=== PATIENT | female | born 1985 | race Asian ===

== ENCOUNTER 2021-11-07 15:30 | Emergency (ER) | payer OTHER ==
[2021-11-07] MEDS ORDERED: diphenhydrAMINE INJ 50 MG/ML VIAL IM STA (15:58)
[2021-11-07] MEDS ORDERED: DROPERIDOL 5 MG/2 ML VIAL IM STA (15:58)
[2021-11-07] MEDS ORDERED: SUMAtriptan 6 MG/0.5 ML VIAL SUBQ STA (15:58)
--- NOTE | 2021-11-07 16:15 | ED Physician Documentation ---
PD HPI HEADACHE - Stated complaint Stated Complaint: HEADACHE - Chief complaint Chief Complaint: Neuro - History obtained from History obtained from: Patient, Family - History of Present Illness Timing - onset: How many days ago (5) Timing - duration: Days (5) Timing - details: Gradual onset Pain level max: 7 Pain level now: 4 Location: Right Quality: Throbbing, Aching Associated symptoms: No: Fever, Stiff neck, Nausea, Vomiting, Weakness, Numbness, Syncope, Seizure Improved by: Rest, Dark room Contributing factors: No: Anticoagulated, Possible carbon monoxide, Trauma - Additional information Additional information: Patient is a 36-year-old female who is brought in by her today. She has had a headache for the past 5 days, gradual in onset, gradually worsening. Not relieved by Tylenol at home. She is about 6 months . She is currently breast-feeding. The headache does not really change with light. She states that sound does make the headache worse. The headache is mainly on the right side but has moved around. Was gradual in onset, not sudden. No fever, no vomiting. No nausea. Better with rest in a dark room. Worse with sound. No trauma. No recent illness. Review of Systems Constitutional: denies: Fever, Chills GI: denies: Vomiting, Diarrhea Skin: denies: Rash Musculoskeletal: denies: Neck pain, Back pain Neurologic: denies: Focal weakness, Numbness, Confused, Altered mental status, Head injury PD PAST MEDICAL HISTORY - Past Medical History Past Medical History: No - Past Surgical History Past Surgical History: No - Present Medications Home Medications: Ambulatory Orders Medication Instructions Recorded Confirmed Amox/Clav 875/125 [Augmentin] 1 tab PO Q12H #20 tablet 11/07/21 Oxycodone HCl [Roxicodone] 5 mg PO Q6H PRN #14 tablet 11/07/21 - Allergies Allergies/Adverse Reactions: Allergies Allergy/AdvReac Type Severity Reaction Status Date / Time No Known Drug Allergies Allergy Verified 11/07/21 15:38 PD ED PE NORMAL - Vitals Vital signs reviewed: Yes - General General: Alert and oriented X 3, No acute distress - HEENT HEENT: Atraumatic, PERRL, EOMI, Ears normal, Moist mucous membranes, Pharynx benign - Neck Neck: Supple, no meningeal sign, No bony TTP - Cardiac Cardiac: RRR, No murmur, Strong equal pulses - Respiratory Respiratory: No respiratory distress, Clear bilaterally - Abdomen Abdomen: Soft, Non tender, Non distended - Back Back: No spinal TTP - Derm Derm: Warm and dry - Extremities Extremities: No edema, No calf tenderness / cord - Neuro Neuro: Alert and oriented X 3, [employer] 2-12 intact, No motor deficit, No sensory deficit, Normal speech Eye Opening: Spontaneous Motor: Obeys Commands Verbal: Oriented GCS Score: 15 - Psych Psych: Normal mood, Normal affect Results - Vitals Vitals: Vital Signs - 24 hr 11/07/21 11/07/21 15:40 15:42 Temperature 36.9 C 36.9 C Heart Rate 85 85 Respiratory 16 16 Rate Blood Pressure 108/74 108/74 O2 Saturation 99 99 Oxygen O2 Source Room air - Rads (name of study) head CT Radiology: Final report received, EMP read contemporaneously, See rad report PD MEDICAL DECISION MAKING - ED course Complexity details: reviewed results, re-evaluated patient, considered differential (No evidence of subarachnoid hemorrhage, tumor, encephalitis, meningitis.), d/w patient ED course: 36-year-old female with what appears to be a sinus headache. She appears to have acute sphenoid sinusitis on CT scan. We will place on pain medication and antibiotics for home. Patient is well-appearing, nontoxic. Afebrile. Headache improved in the emergency department. Patient and family counseled regarding signs and symptoms for which I believe and urgent re-evaluation would be necessary. Patient with good understanding of and agreement to plan and is comfortable going home at this time This document was made in part using voice recognition software. While efforts are made to proofread this document, sound alike and grammatical errors may occur. Departure - Departure Disposition: Home, Self Care Clinical Impression: Sinus headache Sinusitis Qualifiers: Sinusitis location: sphenoidal Chronicity: acute Recurrence: non-recurrent Qualified Code(s): J01.30 - Acute sphenoidal sinusitis, unspecified Condition: Good Instructions: ED Headache Sinus, ED Sinusitis Abx Tx Follow-Up: YUMIKO GONZALES [Primary Care Provider] - Within 1 week Prescriptions: Amox/Clav 875/125 [Augmentin] 1 tab PO Q12H #20 tablet Oxycodone HCl [Roxicodone] 5 mg PO Q6H PRN #14 tablet PRN Reason: Pain Comments: Your prescriptions were sent to [facility] in [place]. Please take all antibiotics until gone. You can use the medication as needed for pain. The headache should improve as the sinus infection improves. I am prescribing a short course of narcotic pain medication for you. These are potentially dangerous and addictive medications that should be used carefully. These medications may constipate you. Take an hlxi-obo-yuifiun stool softener (docusate) twice daily with plenty of water while taking these medications. If you go 24 hours without a bowel movement, take pjuh-ips-eldduaz miralax, per package instructions. Do not drink or drive while taking these medications. If you received narcotic or sedating medications while in the emergency department, do not drive for 24 hours. Store this medication in a safe, secure place and out of reach of children. It is a violation of federal law to give or sell this medication to another person or to use in a manner other than prescribed. The ED will not refill narcotic prescriptions, including prescriptions lost or stolen. To dispose of unwanted medications: 1. [facility] [address] in [place] has a medication drop box. They accept prescription medications (in pill form) Monday through Monday 9:00 a.m. to 5:00 p.m. 2. The [facility] [employer] accepts prescription medications (in pill form only) for disposal year round. Call for more information. 3. Contact the [facility] for the next [facility] sponsored prescription drug collection event. , [phone], or [phone];
--- NOTE | 2021-11-07 16:33 | CT Report ---
PROCEDURE: HEAD WO INDICATIONS: gradual onset HOLLY x 5 days, 6 months post TECHNIQUE: Noncontrast 4.5 mm thick angled axial sections acquired from the foramen magnum to the vertex. For r adiation dose reduction, the following was used: automated exposure control, adjustment of mA and/or kV according to patient size. COMPARISON: None. FINDINGS: Image quality: There is streak artifact seen through the skull base. CSF spaces: Basal cisterns are patent. No extra-axial fluid collections. Ventricles are normal in size and shape. Brain: No midline shift. No intracranial masses or hemorrhage. Pride-white matter interface is norm al. Skull and face: Calvarium and visualized facial bones are intact, without suspicious lesions. Sinuses: There is focal fluid is seen within the right sphenoid sinus, with mild mucosal thickening i nvolving the left sphenoid sinus. Minimal to mild mucosal thickening is seen elsewhere within the vis ualized paranasal sinuses. No significant abnormal fluid can be seen within the mastoid air cells. IMPRESSION: Focal sphenoid sinus disease. No significant intracranial abnormality is seen. No intracranial hemorrhage is seen. Reviewed by: Segundo Riggins MD on 11/07/2021 3:31 PM BOB Approved by: Segundo Riggins MD on 11/07/2021 3:31 PM BOB Station ID: [id number]
[2021-11-07] MEDS ORDERED: oxyCODONE 5 MG TABLET PO STA (16:43)
[2021-11-07 17:14] VITALS: BP 110/72
== END 2021-11-07 17:13 | disposition home or self-care (01) ==
LOC: ED 15:30
DX: G44.89 Other headache syndrome (principal); J01.30 Acute sphenoidal sinusitis, unspecified
CPT/HCPCS: 70450; 96372; 99284; A9270; J1200